=== PATIENT | female | born 1965 | race African-American/Black ===

== ENCOUNTER → 2016-12-27 | Outpatient (CLI) | payer OTHER ==
[~2016-12-27] MED LIST: K-DUR20 ME1 PO
--- NOTE | ~2016-12-27 | US98 ---
[facility] A Service of [facility] & [facility] RADIOLOGY TEXT RESULTS PATIENT: SARAH AVELAR LOCATION: [facility] : 67 UNIT #: [id number] AGE: [address]: Jose Art MD SEX: F ORDER DR: [id number] [facility] [address] [place], [place] [address] [id number] O MR#: [id number] Acc #: [id number] NAME: SARAH AVELAR : 1965 SEX: F STUDY DATE/TIME: 12/27/2016 15:40 UNIT: [facility] ROOM: STUDY DESCRIPTION: US Pelvic Non-OB Complete Attending Physician: Jose Art M.D. Referring Physician: Jose Art M.D. Ordering Physician: Jose Art M.D. Primary Care Physician: Jose Art M.D. MEDICAL IMAGING REPORT This report is preliminary unless electronic signature is present EXAM Transabdominal and transvaginal pelvic ultrasound 12/27/2016 HISTORY Pelvic pain with pelvic exam 12/08/2016. Excessive vaginal bleeding for 1 month. FINDINGS Transabdominal and transvaginal pelvic ultrasound was performed. Endovaginal ultrasound was performed for attempted better visualization of the adnexal structures. The bladder is normal in appearance. The uterus measures 9.3 cm craniocaudal x 4.5 cm AP x 5.2 cm transverse. The endometrial stripe measures 6 mm. Right ovary measured 2.1 cm x 1.4 cm x 1.8 cm while the left ovary measured 3.5 cm x 2.4 cm x 1.4 cm. There is a 1.4 cm prominent follicle on the left ovary. There is no adnexal mass and there is no free fluid in the pelvis. Color-flow Doppler images show normal blood flow to both ovaries. IMPRESSION Negative transabdominal and transvaginal pelvic ultrasound. Dictated by... Donis Gibbs M.D. THIS IS AN ELECTRONICALLY VERIFIED REPORT Donis Gibbs M.D. at 12/29/2016 8:10 AM OTTONIEL/nestor TD: 12/28/2016 09:12 JOB #: [id number] [facility] A Service of [facility] RADIOLOGY TEXT RESULTS PATIENT: SARAH AVELAR LOCATION: [facility] : 67 UNIT #: [id number] AGE: [address]: Jose Art MD SEX: F ORDER DR: MEDICAL IMAGING REPORT Page 1 of 1 COPY
== END | disposition home or self-care (01) ==
LOC: CWCC 15:30
DX: R10.2 Pelvic and perineal pain (principal)
CPT/HCPCS: 76830; 76856